=== PATIENT | female | born 1980 | race Caucasian/White ===

== ENCOUNTER 2024-03-21 14:58 | Outpatient (OUT) | payer OTHER, SELFPAY ==
--- NOTE | 2024-03-21 15:34 | XR_ITS ---
The [place] [id number] Patient Name: ASHLEE MILLER MRN: [id number] date: 1980 Sex: F Assigned Patient Location: [facility] Current Patient Location: Accession/Order Number: [id number] Exam Date: 03/21/2024 15:35 Report Date: 03/22/2024 07:24 At the request of: PARKER OROZCO Procedure: XR shoulder LT min 2V PROCEDURE: XR shoulder LT min 2V COMPARISON: None. HISTORY: Left Shoulder Pain FINDINGS: BONES:No fracture, acute abnormality, or significant arthropathy. SOFT TISSUES:Negative. No visible soft tissue swelling. EFFUSION:None visible. OTHER: Negative. XR/XR shoulder LT min 2V IMPRESSION: No acute radiographic abnormality Electronically authenticated by: DEBBIE GENAO Date: 03/22/2024 07:24
== END 2024-03-21 14:59 | disposition home or self-care (01) ==
LOC: RAD 15:16
PROVIDERS: PCP Nurse Practitioner; Visit Provider Nurse Practitioner
DX: M25.512 Pain in left shoulder (principal)
CPT/HCPCS: 73030

== ENCOUNTER 2024-05-13 12:52 | Outpatient (OUT) | payer OTHER, SELFPAY ==
--- NOTE | 2024-05-13 12:55 | MR_ITS ---
The [address] [address] Patient Name: ASHLEE MILLER MRN: [id number] date: 1980 Sex: F Assigned Patient Location: MRI Current Patient Location: MRI Accession/Order Number: [id number] Exam Date: 05/13/2024 18:47 Report Date: 05/13/2024 18:51 At the request of: NON-STAFF PHYSICIAN Procedure: MR cervical spine wo con MR cervical spine wo con 05/13/2024 1:48 PM SIGNS AND SYMPTOMS: Chronic neck pain with frequent headaches PROTOCOL: Multiplanar multisequence MR images of the cervical spine without IV contrast COMPARISON: None. FINDINGS: The bones of the cervical spine are in anatomic alignment. There is preservation of vertebral body heights. There is disc desiccation and mild disc height loss at C4-C5, C5-C6, and C6-C7. The marrow signal is within normal limits. The cord is normal in signal. No epidural or paraspinous fluid collection is appreciated. The visualized paraspinous soft tissues are within normal limits. The prevertebral soft tissues are within normal limits. At C2-C3: There is a normal disc, central canal, and neural foramen. At C3-C4: There is mild uncovertebral joint spurring without significant spinal canal or neural foraminal stenosis. At C4-C5: There is mild uncovertebral joint spurring with mild bilateral neural foraminal narrowing. No spinal canal narrowing. At C5-C6: There is a broad-based disc bulge with uncovertebral joint spurring. There is mild spinal canal narrowing with mild bilateral neural foraminal narrowing. At C6-C7: There is a broad-based disc bulge with uncovertebral joint spurring. There is mild spinal canal narrowing with mild left and moderate right neural foraminal narrowing. At C7-T1: There is a normal disc, central canal, and neural foramen. MR/MR cervical spine wo con IMPRESSION: No cord compression or cord signal abnormality. At C6-C7: There is a broad-based disc bulge with uncovertebral joint spurring. There is mild spinal canal narrowing with mild left and moderate right neural foraminal narrowing. Lesser degrees of spinal canal and neural foraminal narrowing are noted as above. Impression dictated by: Jermaine Garza M.D.05/13/2024 6:51 PM Dictation Location: [place] [address] Electronically authenticated by: [id number] Y Date: 05/13/2024 18:51
== END 2024-05-13 12:53 | disposition home or self-care (01) ==
LOC: MRI 12:52
PROVIDERS: PCP Nurse Practitioner
DX: M54.12 Radiculopathy, cervical region (principal); M50.323 Other cervical disc degeneration at C6-C7 level
CPT/HCPCS: 72141

== ENCOUNTER 2024-12-04 12:57 | Outpatient (RCR) | payer OTHER, SELFPAY | END 2025-01-30 14:19 | disposition home or self-care (01) | LOC: PT 12:57 | PROVIDERS: PCP Nurse Practitioner; Visit Provider Orthopaedic Surgery | DX: M25.561 Pain in right knee (principal); M23.91 Unspecified internal derangement of right knee | CPT/HCPCS: 97014; 97035; 97110; 97112; 97140; 97163; G0283 ==